=== PATIENT | female | born 1980 | race Caucasian/White ===

== ENCOUNTER → 2023-06-02 13:45 | Outpatient (REF) | payer BC, SELFPAY | LOC: HWRCS 13:45 | PROVIDERS: ATTENDING PHYSICIAN Nurse Practitioner | DX: I51.7 Cardiomegaly (principal) | CPT/HCPCS: 93306 ==

== ENCOUNTER → 2023-06-12 18:00 | Outpatient (REF) | payer BC, SELFPAY ==
--- NOTE | 2023-06-08 16:09 | PN.DIAED02 ---
Referral
DSME Class Series Code: [id number]
Referred For: Diabetes Self-Management Training, Self-Blood Glucose Monitoring, Long-Term Complication Instruction, Accute Complication Instruction, Care Coordination, Disease Management
PHI Release Authorization Form Signed: Yes
Patient Problems:
Current Active Problems
Problem Status Onset
Type 2 diabetes mellitus without complications ~05/02/23
Demographic
(1) Type 2 diabetes mellitus without complications
Status: Acute Onset Date: ~05/02/23 Code(s): E11.9 - Type 2 diabetes mellitus without complications
Patient's primary language-: Fijian
Education: Advanced college degree
Occupation: Professional
Hours Worked/Week: > 40
Shift: Day
- Social
Primary Support Person: Self
Primary Care Takers: Self
Living Arrangements: Self
- Learning Methods
Preferred Method: Lecture/audio, Hands-on demonstration, Video
Barriers to Learning: None
Glycemic Control
- Blood Glucose Monitoring Assessment
Date: 04/26/23
Blood glucose monitoring at home: Yes
Monitor Brands: Other (Contour Next Ez)
Frequency: 2x per day
Time: fasting, after dinner
Patient uses Alternate Site Testing: No
Patient instructed on Use and Limitation: No
- Hemoglobin A1c
Date: 05/02/23
A1C Percentage (%): 8.4
Medical History of Diabetes
Family Diabetes History: Father, Grandfather
Previous Diabetes Education: No
Previous visit with Dietitian: No
Complications/Comorbidity/Specialist: Hypertension, Hyperlipidemia
Measures
- Anthropometrics
Height: 5 ft 5 in
Actual Weight: 134.263 kg
- Blood Pressure / Pulse
Blood pressure: 146/82
Pulse: 80
- Diabetes Management
Medical Management for Diabetes: Complete physical exam (04/18/2023), Dental exam (12/15/2022)
Self-Care
- Tobacco Usage
Do you now, or have you ever smoked?: Never smoked
- Alcohol & Drugs Usage
Drinks Alcohol: Yes
Amount/day: Social Occasions
Uses Recreational Drugs: No
- Meals & Dining
Meals & Dining: Patient skips meals: No, Food Intolerance / Allergy: No, Cultural / Judaism Dietary Needs: No
Primary Food Mobile Lounge Driver: Self
Primary Drill Rig Operator: Self
Dining Out Frequency: 1-3x per week
- Physical Activity
Physical Limitation: No
Patient participates in physical Activity: Yes
Activity Types: Combination (Cardio/ Strength)
Duration: 31-40 minutes
Frequency: 3-5x per week
Intensity: Moderate
- Self Foot-Care
Foot Problems: None
Performs Self Foot-Exam: Yes
Frequency: Daily
- Patient-Self Assessment
Diabetes Knowledge: Fair
Feelings About Diabetes: Acceptance
General Health: Fair
Importance of Health: Extremely
Stress Level: High
Barriers to Diabetes Management: Work/school, Family/friends, Depression/emotions, Finances, Schedule/time
Depression Survey Score: 5
- Diabetes Identification
Carries Diabetes Identification: No
Diabetes Identification Information Provided: No
Care Plan
- Education Needs
Patient Education Needs: Diabetes disease process, Chronic complications, Acute complications, Medication, Monitoring, Physical activity, Psychosocial Adjustment, Nutritional management, Goal setting & problem solving
Recommended Diabetes Training Program based on assessment: Outpatient Diabetes Education Program
- Plan of Care
Plan of Care:
Met with Concepcion today for registration and initiation of Diabetes Self management. Pt was recommended by her PCP due to recent Dx of T2DM with an A1C of 8.4% that was noted on recent blood work. Patient states that she was started on Metformin
500mg BID and Mounjaro 2.5mg weekly weeks ago.
Reports that she has a Contour Next Ez and is monitoring her sugars times a day, before lunch and at bedtime. We reviewed the testing pattern and set a schedule for her to monitor her blood sugars 2x/day- Fasting and 2 hrs after dinner.
Pt was counseled with emphasis on the importance of Physical activity, need to adhere to a healthy life style including healthy eating, taking her medications and monitoring blood glucose. We spent a good amount of time discussing dietary choices.
Goals for physical activity were established; pt will increase her duration of exercise to 45 minutes, 5 days a week.
--- NOTE | 2023-06-08 16:29 | PN.DIAED04 ---
Education Record
- Education Record
Class Attended: Other (Pre-Registration for DSME Classes)
DSME Class Series Code: [id number]
Instructor: Nurse Practitioner
Class Length (mins): 60
Pre-Program Knowledge: Needs review / Assistance
Pre-Test Score (%): 62
Goals
- Goal 1
Being Active: Exercise 30 minutes-5 times per week
Goals To Be Evaluated: Exercise 30 mins-5x/week
- Goal 2
Healthy Eating: Make better food choices, Follow meal plan, Reduce portion sizes
Goals To Be Evaluated: Make better food choices. Follow meal plan. Reduce portion sizes
- Goal 3
Monitoring: Follow monitoring schedule, Record blood glucose levels in log book
Goals To Be Evaluated: Follow monitoring times. Record BG levels
--- NOTE | 2023-06-13 13:33 | PN.DIAED04 ---
Education Record
- Education Record
Class Attended: Class 1
DSME Class Series Code: [id number]
Instructor: Registered Nurse (Irma Butler, RN, BSN, CDE)
Class Length (mins): 120
Post-Class 1 Test Score (%): 100
--- NOTE | 2023-06-13 13:33 | PN.DIAED14 ---
This is to notify you that your patient with diabetes, CARINE ADAME ( 1980), has enrolled in our diabetes self-management classes that are being held at [facility].
These classes will include an introduction to diabetes, diet, medication, exercise and prevention of complications. At the end of our class series, you will receive a report of your patient's participation and progress for your records.
Please contact me at the Diabetes [facility], , if there is any particular information regarding your patient that might be helpful to me.
Sincerely,
--- NOTE | 2023-06-19 14:11 | PN.DIAED06 ---
Meal Plans - Regular
- Meal Plan
Diabetic Meal Plan Name: 1800 calories
Breakfast - Total Carbohydrate (grams): 45
Breakfast - Starch Carbohydrate: 0
Breakfast - Fruit Carbohydrate: 0
Breakfast - Milk Carbohydrate: 0
Breakfast - Nonstarchy Vegetables: Yes
Breakfast - Meat/Protein: 1
Breakfast - Fat: 2
Morning Snack - Total Carbohydrate (grams): 15
Morning Snack - Starch Carbohydrate: 0
Morning Snack - Fruit Carbohydrate: 0
Morning Snack - Milk Carbohydrate: 0
Morning Snack - Nonstarchy Vegetables: Yes
Morning Snack - Meat/Protein: 0.5
Morning Snack - Fat: 0
Lunch - Total Carbohydrate (grams): 45
Lunch - Starch Carbohydrate: 0
Lunch - Fruit Carbohydrate: 0
Lunch - Milk Carbohydrate: 0
Lunch - Nonstarchy Vegetables: Yes
Lunch - Meat/Protein: 3
Lunch - Fat: 1
Afternoon Snack - Total Carbohydrate (grams): 15
Afternoon Snack - Starch Carbohydrate: 0
Afternoon Snack - Fruit Carbohydrate: 0
Afternoon Snack - Milk Carbohydrate: 0
Afternoon Snack - Nonstarchy Vegetables: Yes
Afternoon Snack - Meat/Protein: 0.5
Afternoon Snack - Fat: 0
Dinner - Total Carbohydrate (grams): 45
Dinner - Starch Carbohydrate: 0
Dinner - Fruit Carbohydrate: 0
Dinner - Milk Carbohydrate: 0
Dinner - Nonstarchy Vegetables: Yes
Dinner - Meat/Protein: 3
Dinner - Fat: 2
Evening Snack - Total Carbohydrate (grams): 15
Evening Snack - Starch Carbohydrate: 0
Evening Snack - Fruit Carbohydrate: 0
Evening Snack - Milk Carbohydrate: 0
Evening Snack - Nonstarchy Vegetables: Yes
Evening Snack - Meat/Protein: 0
Evening Snack - Fat: 0
== END ==
LOC: DES 18:00
PROVIDERS: ATTENDING PHYSICIAN Nurse Practitioner
DX: E11.9 Type 2 diabetes mellitus without complications (principal)
CPT/HCPCS: 99078

== ENCOUNTER → 2023-06-19 18:00 | Outpatient (REF) | payer BC, SELFPAY ==
--- NOTE | 2023-06-20 08:41 | PN.DIAED04 ---
Education Record
- Education Record
Class Attended: Class 2
DSME Class Series Code: [id number]
Instructor: Registered Dietitian (Lamar Zavala, RD, LDN, CDE)
Class Length (mins): 120
== END ==
LOC: DES 18:00
PROVIDERS: ATTENDING PHYSICIAN Nurse Practitioner
DX: E11.9 Type 2 diabetes mellitus without complications (principal)
CPT/HCPCS: 99078

== ENCOUNTER → 2023-06-26 12:00 | Outpatient (REF) | payer BC, SELFPAY ==
--- NOTE | 2023-07-03 10:58 | PN.DIAED04 ---
Education Record
- Education Record
Class Attended: Class 3
DSME Class Series Code: [id number]
Instructor: Registered Dietitian (Lamar Zavala, RD, LDN, CDE)
Class Length (mins): 120
Post-Class 2 & 3 Test Score (%): 100
== END ==
LOC: DES 12:00
PROVIDERS: ATTENDING PHYSICIAN Nurse Practitioner
DX: E11.9 Type 2 diabetes mellitus without complications (principal)
CPT/HCPCS: 99078

== ENCOUNTER → 2023-07-03 18:00 | Outpatient (REF) | payer BC, SELFPAY ==
--- NOTE | 2023-07-04 13:16 | PN.DIAED04 ---
Education Record
- Education Record
Class Attended: Class 4
DSME Class Series Code: [id number]
Instructor: Registered Nurse (Irma Butler, RN, BSN, CDE)
Class Length (mins): 120
Post-Class 4 Test Score (%): 100
== END ==
LOC: DES 18:00
PROVIDERS: ATTENDING PHYSICIAN Nurse Practitioner
DX: E11.9 Type 2 diabetes mellitus without complications (principal)
CPT/HCPCS: 99078

== ENCOUNTER → 2023-08-21 18:00 | Outpatient (REF) | payer BC, SELFPAY | LOC: DES 18:00 | PROVIDERS: ATTENDING PHYSICIAN Nurse Practitioner | DX: E11.9 Type 2 diabetes mellitus without complications (principal) | CPT/HCPCS: 99078 ==

== ENCOUNTER → 2024-06-26 16:49 | Outpatient (REF) | payer BC, SELFPAY | LOC: HWRAD 16:49 | PROVIDERS: ATTENDING PHYSICIAN Nurse Practitioner Adult Health | DX: M25.562 Pain in left knee (principal) | CPT/HCPCS: 73564 ==

== ENCOUNTER → 2024-11-18 13:33 | Outpatient (REF) | payer BC, SELFPAY | LOC: HWRAD 13:33 | PROVIDERS: ATTENDING PHYSICIAN Chiropractor; FAMILY PHYSICIAN Nurse Practitioner Adult Health | DX: M54.2 Cervicalgia (principal); M54.6 Pain in thoracic spine | CPT/HCPCS: 72050; 72072 ==